=== PATIENT | female | born 2000 | race African-American/Black ===

== ENCOUNTER 2020-04-09 15:49 | Emergency (ER) | payer OTHER ==
[2020-04-09 16:00] VITALS: TEMP 98; BMI 29.2
--- NOTE | 2020-04-09 16:01 | PDOC ---
Rapid Medical Evaluation Chief Complaint: Pain Time Seen by Provider: 04/09/20 15:58 Medical Evaluation: 04/09/20 15:58 I have performed a brief in-person evaluation of this patient. The patient presents with a chief complaint of: R lower abd pain w/ n/v today. Seen in UC today and given zofran. States urine was collected w/ UTI. No change in BM, dysuria, vaginal discharge, f/c Pertinent physical exam findings:stable and in NAD I have ordered the following:ua/cx/labs The patient will proceed to the ED for further evaluation. Discharge Disposition - Diagnosis Abdominal pain Qualifiers: Abdominal location: right lower quadrant Qualified Code(s): R10.31 - Right lower quadrant pain - Referrals - Patient Instructions - Post Discharge Activity
[2020-04-09 19:07] LABS: EOS % 0.1 % (0-4.5); HEMATOCRIT 35.5 % (32.4-45.2); HEMOGLOBIN 11.1 GM/dL (10.7-15.3); LYMPH % 20.7 % (8-40); MCH 26.2 pg (25.7-33.7); MCHC 31.4 g/dl (32.0-36.0); MEAN CELL VOLUME 83.6 fl (80-96); MEAN PLT VOLUME 9.2 fl (7.5-11.1); MONO % 2.7 % (3.8-10.2); NEUT % 75.5 % (42.8-82.8); PLATELET COUNT 226 K/MM3 (134-434); RBC 4.24 M/mm3 (3.60-5.2); WHITE BLOOD COUNT 9.9 K/mm3 (4.0-10.0)
[2020-04-09 19:08] LABS: PH,URINE 5.5 (5.0-8.0); URINE APPEARANCE CLOUDY; URINE BILIRUBIN NEGATIVE (NEGATIVE); URINE COLOR YELLOW; URINE GLUCOSE (UA) NEGATIVE (NEGATIVE); URINE KETONE 1+ (NEGATIVE); URINE LEUK ESTERASE NEGATIVE (NEGATIVE); URINE NITRITE NEGATIVE (NEGATIVE); URINE PROTEIN TRACE (NEGATIVE)
[2020-04-09 19:21] LABS: ALBUMIN 4.1 g/dl (3.4-5.0); BILIRUBIN,TOTAL 0.9 mg/dL (0.2-1); BLOOD UREA NITROGEN 14.1 mg/dL (7-18); CALCIUM 9.5 mg/dL (8.5-10.1); CREATININE 0.9 mg/dL (0.55-1.3); POTASSIUM 4.5 mmol/L (3.5-5.1); TOT PROT 8.2 g/dl (6.4-8.2)
--- NOTE | 2020-04-09 20:58 | PDOC ---
History of Present Illness - General Chief Complaint: Pain Stated Complaint: SENT BY PCP/ABD PAIN Time Seen by Provider: 04/09/20 15:58 - History of Present Illness Initial Comments: 04/09/20 20:56 19-year-old female without comorbidities presents for evaluation of right-sided abdominal pain x1 day Past History - Medical History Allergies/Adverse Reactions: Allergies Allergy/AdvReac Type Severity Reaction Status Date / Time No Known Allergies Allergy Verified 04/09/20 16:00 COPD: No - Reproductive History Is Patient Now?: No - Psycho-Social/Smoking History Smoking History: Never smoked - Substance Abuse Hx (Audit-C & DAST Scrn) How often the patient has a drink containing alcohol: Never Score: In Men: 4 or > Positive; In Women: 3 or > Positive: 0 Screen Result (Pos requires Nsg. Audit-10AR): Negative Review of Systems - Review of Systems Constitutional: No: Fever ABD/GI: Yes: See HPI. No: Constipated, Diarrhea, Nausea, Vomiting *Physical Exam - Vital Signs Last Vital Signs Temp Pulse Resp BP Pulse Ox 98 F 71 18 118/56 L 100 04/09/20 15:57 04/09/20 15:57 04/09/20 15:57 04/09/20 15:57 04/09/20 15:57 - Physical Exam 04/09/20 20:57 GENERAL: The patient is awake, alert, and fully oriented, in no acute distress. HEAD: Normal with no signs of trauma. EYES: sclera anicteric, conjunctiva clear. ENT: Ears normal tympanic membranes normal oropharynx clear uvula midline NECK: Normal range of motion LUNGS: Breath sounds equal, clear to auscultation bilaterally. No wheezes, and no crackles. HEART: S1 and S2 without murmur, rub or gallop. ABDOMEN: Soft, Right lower quadrant tenderness with guarding and reboundr, normoactive bowel sounds. No guarding, no rebound. No masses. EXTREMITIES: Normal range of motion, no edema. No clubbing or cyanosis. No cords, erythema, or tenderness. NEUROLOGICAL: Cranial nerves II through XII grossly intact. PSYCH: Normal mood, normal affect. SKIN: Warm, Dry, normal turgor, no rashes or lesions noted. ED Treatment Course - LABORATORY CBC & Chemistry Diagram: 04/09/20 18:50 04/09/20 18:50 - ADDITIONAL ORDERS Additional order review: Laboratory Results 04/09/20 04/09/20 04/09/20 18:50 18:50 18:01 Sodium 138 Potassium 4.5 Chloride 106 Carbon Dioxide 23 Anion Gap 9 BUN 14.1 Creatinine 0.9 Est GFR (CKD-EPI)AfAm 106.68 Est GFR (CKD-EPI)NonAf 92.04 Random Glucose 92 Calcium 9.5 Total Bilirubin 0.9 AST 25 ALT 17 Alkaline Phosphatase 59 Total Protein 8.2 Albumin 4.1 Lipase 138 Serum , Qual Negative Urine Color Yellow Urine Appearance Cloudy Urine pH 5.5 Ur Specific [place] 1.029 Urine Protein Trace Urine Glucose (UA) Negative Urine Ketones 1+ H Urine Blood Negative Urine Nitrite Negative Urine Bilirubin Negative Urine Urobilinogen 1.0 Ur Leukocyte Esterase Negative 04/09/20 18:50 RBC 4.24 MCV 83.6 MCHC 31.4 L RDW 15.0 MPV 9.2 Neutrophils % 75.5 Lymphocytes % 20.7 Monocytes % 2.7 L Eosinophils % 0.1 Basophils % 1.0 - RADIOLOGY Radiology Studies Ordered: Category Date Time Status ABDOMEN & PELVIS CT WITH CONTR [CT] Stat CT Scan 04/09/20 19:12 Completed Medical Decision Making - Medical Decision Making 04/09/20 20:57 Most likely exacerbation of ovarian cyst. We will have patient follow-up with [facility]. I have reviewed the pathophysiology with the patient. They are in agreement with the treatment plan all questions were answered to their satisfaction. Understanding for follow-up without fail was also conveyed to the patient. Again they are in agreement. Discharge - Discharge Information Problems reviewed: Yes Clinical Impression/Diagnosis: Ovarian cyst Abdominal pain Qualifiers: Abdominal location: right lower quadrant Qualified Code(s): R10.31 - Right lower quadrant pain Condition: Stable Disposition: HOME - Admission No - Follow up/Referral Referrals: Dae Clay MD [Primary Care Provider] - Lindsay Connors MD [Staff Physician] - - Patient Discharge Instructions Additional Instructions: Tylenol and Motrin as directed for pain and without fail follow-up with [facility] in 1 to 2 days for further evaluation and treatment of your ovarian cyst. Return to the emergency room should symptoms worsen. - Post Discharge Activity
--- NOTE | 2020-04-09 21:08 | PDOC ---
*Physical Exam - Vital Signs Last Vital Signs Temp Pulse Resp BP Pulse Ox 98 F 71 18 118/56 L 100 04/09/20 15:57 04/09/20 15:57 04/09/20 15:57 04/09/20 15:57 04/09/20 15:57 ED Treatment Course - LABORATORY CBC & Chemistry Diagram: 04/09/20 18:50 04/09/20 18:50 - ADDITIONAL ORDERS Additional order review: Laboratory Results 04/09/20 04/09/20 04/09/20 18:50 18:50 18:01 Sodium 138 Potassium 4.5 Chloride 106 Carbon Dioxide 23 Anion Gap 9 BUN 14.1 Creatinine 0.9 Est GFR (CKD-EPI)AfAm 106.68 Est GFR (CKD-EPI)NonAf 92.04 Random Glucose 92 Calcium 9.5 Total Bilirubin 0.9 AST 25 ALT 17 Alkaline Phosphatase 59 Total Protein 8.2 Albumin 4.1 Lipase 138 Serum , Qual Negative Urine Color Yellow Urine Appearance Cloudy Urine pH 5.5 Ur Specific [place] 1.029 Urine Protein Trace Urine Glucose (UA) Negative Urine Ketones 1+ H Urine Blood Negative Urine Nitrite Negative Urine Bilirubin Negative Urine Urobilinogen 1.0 Ur Leukocyte Esterase Negative 04/09/20 18:50 RBC 4.24 MCV 83.6 MCHC 31.4 L RDW 15.0 MPV 9.2 Neutrophils % 75.5 Lymphocytes % 20.7 Monocytes % 2.7 L Eosinophils % 0.1 Basophils % 1.0 Medical Decision Making - Medical Decision Making 04/09/20 21:08 Patient seen by the advanced practice provider under my supervision. Ancillary testing reviewed as necessary. I agree with plan as outlined by the advanced practice provider. Discharge - Discharge Information Problems reviewed: Yes Clinical Impression/Diagnosis: Ovarian cyst Abdominal pain Qualifiers: Abdominal location: right lower quadrant Qualified Code(s): R10.31 - Right lower quadrant pain Condition: Stable Disposition: HOME - Follow up/Referral Referrals: Lindsay Connors MD [Staff Physician] - Dae Clay MD [Primary Care Provider] - - Patient Discharge Instructions Additional Instructions: Tylenol and Motrin as directed for pain and without fail follow-up with [facility] in 1 to 2 days for further evaluation and treatment of your ovarian cyst. Return to the emergency room should symptoms worsen. - Post Discharge Activity
[2020-04-09 22:42] VITALS: BP 120/70; PULSE 70
== END 2020-04-09 22:42 | disposition home or self-care (01) ==
LOC: JER 15:49
DX: R10.31 Right lower quadrant pain (principal)
CPT/HCPCS: 36415; 74177-TC; 76830-TC; 80053; 81003; 83690; 84703; 85025; 99285-25; Q9967

== ENCOUNTER 2020-04-10 11:42 | Emergency (ER) | payer OTHER ==
--- NOTE | 2020-04-10 11:51 | PDOC ---
Rapid Medical Evaluation Time Seen by Provider: 04/10/20 11:48 Medical Evaluation: Allergies Allergy/AdvReac Type Severity Reaction Status Date / Time No Known Allergies Allergy Verified 04/09/20 16:00 04/10/20 11:49 I performed a brief in-person evaluation of this patient. Pt is a 19 y/o female who presents with pain on her R side that she was seen for yesterday. She had a CT yesterday and an US and was told she has a R ovarian cyst. The patient states Tylenol has not helped so she returned to the ED. She admits that she has an appointment with supervisor [employer] on Tuesday04/14/20. She denies any fevers or chills. Pertinent physical exam findings: R sided abd tenderness to palpation I have ordered the following: deferred to treating provider's discretion Patient to proceed to ED for further evaluation. Discharge Disposition - Diagnosis Right sided abdominal pain - Referrals - Patient Instructions - Post Discharge Activity
[2020-04-10 11:53] VITALS: BP 115/58; PULSE 79; TEMP 98.9; BMI 25.7
[2020-04-10] MEDS ORDERED: KETOROLAC TROMETHAMINE 30 MG/1 ML VIAL IM ONE (12:12)
--- NOTE | 2020-04-10 12:26 | PDOC ---
History of Present Illness - General Chief Complaint: Pain Stated Complaint: ABD PAIN Time Seen by Provider: 04/10/20 11:48 History Source: Patient Exam Limitations: No Limitations - History of Present Illness Initial Comments: 04/10/20 13:01 19-year-old female no significant past medical history presents the ED with right lower quadrant pain. Patient was seen here yesterday and found to have large hemorrhagic ovarian cyst on the right side as well as ovarian cyst on the left. Patient hCG was negative H&H was stable as of yesterday. Patient states that the pain has worsened and she had nausea with NBNB vomiting. Patient has been taking Tylenol for the pain but has not had relief. Patient states she has no new vaginal bleeding or discharge. Pt otherwise denies: fevers, chills, syncope, lightheadedness, dizziness, headaches, neck pain, chest pain, shortness of breath, palpitations, back pain, diarrhea, constipation, melena, hematochezia, dysuria, hematuria, increased urinary frequency/urgency, vaginal bleeding, vaginal discharge. 04/10/20 13:03 Past History - Medical History Allergies/Adverse Reactions: Allergies Allergy/AdvReac Type Severity Reaction Status Date / Time No Known Allergies Allergy Verified 04/10/20 11:53 Home Medications: Ambulatory Orders Ibuprofen [Ibu] 600 mg PO TID #20 tablet 04/10/20 COPD: No - Psycho-Social/Smoking History Smoking History: Never smoked Have you smoked in the past 12 months: No Information on smoking cessation initiated: No - Substance Abuse Hx (Audit-C & DAST Scrn) How often the patient has a drink containing alcohol: Never Score: In Men: 4 or > Positive; In Women: 3 or > Positive: 0 Screen Result (Pos requires Nsg. Audit-10AR): Negative Review of Systems - Review of Systems Constitutional: No: Chills, Fever HEENTM: No: Blurred Vision Respiratory: No: Shortness of Breath Cardiac (ROS): No: Chest Pain ABD/GI: Yes: Symptoms Reported (abdominal pain), Nausea, Vomiting. No: Abdominal Distended : Yes: Pain. No: Burning, Dysuria, Discharge, Hematuria, Urgency Musculoskeletal: No: Back Pain, Joint Pain Neurological: No: Headache *Physical Exam - Vital Signs Last Vital Signs Temp Pulse Resp BP Pulse Ox 98.9 F 79 16 115/58 L 100 04/10/20 11:51 04/10/20 11:51 04/10/20 11:51 04/10/20 11:51 04/10/20 11:51 - Physical Exam 04/10/20 13:03 Gen: AAOx 3, no acute distress, comfortable, no signs of respiratory distress HENT: atraumatic, normocephalic with no laceration or contusion. Nasal mucosa without erythema. Oropharynx without erythema or exudates. Mucous membranes moist. EYES: PERRL, EOM intact, conjunctiva pink NECK: supple; trachea midline; no JVD, no lymphadenopathy, or thyromegaly CV: RRR no murmurs, gallops, or rubs. CHEST: CTA b/l no wheezing, rales or rhonchi ABD: +BS/ND. TTP in RLQ without rebound or guarding; rest of abdomen nonttp soft, no rebound, no guarding EXTREMITY: no cyanosis or erythema. 2+ dorsalis pedis, posterior tibial, and radial pulse. No pedal edema; no calf swelling or tenderness SKIN: no rash, warm and dry, no diaphoresis HEME: no purpura or ecchymosis NEURO: normal speech, CN II-XII intact, sensation intact, normal gait, no cerebellar deficits MS: 5/5 strength in all extremities, FROM intact in all extremities. ED Treatment Course - LABORATORY CBC & Chemistry Diagram: 04/10/20 12:55 04/10/20 12:55 Medical Decision Making - Medical Decision Making 04/10/20 13:04 19-year-old female no significant past medical history presenting with right lower quadrant pain found to have large hemorrhagic cyst on CT as well as transvaginal ultrasound yesterday presenting with new onset of worsening pain nausea and vomiting. Vital signs stable patient appears well in the ED is no longer nauseous Appendicitis ruled out on CT yesterday However since patient has had worsening pain with nausea and vomiting will rule out intermittent torsion with repeat transvaginal ultrasound as well as obtain CBC CMP and lactate will reassess based on results Labs WNL stable from yesterday, Lactate 1.0. US shows: Large complex cyst in the right ovary measuring 5.4 x 4.3 cm representing hemorrhagic cyst there is minimal free fluid in the right adnexa and in the cul-de-sac normal vascular flow in both ovaries without evidence of torsion Spoke with Dr Connors from OBGYN reviewed US findings and pt symptoms with her, recommends pain management and follow up on Tuesday. She does not believe pt has intermittent torsion at this time and does not recommend any acute intervention at this time. Pt reports improvement of pain with meds. Pt is safe and stable for discharge with close follow up with OBGYN, which she has an appointment for Tuesday. Strict return precautions given. Supportive care instructions explained and given to pt. Reasons to return ayla gently to ER explained and given. Importance of follow up with PMD and other specialists as indicated stressed to pt. Pt verbalized understanding of instructions. Pt to follow up with PMD in 2 days. 04/10/20 15:15 04/10/20 16:43 Discharge - Discharge Information Problems reviewed: Yes Clinical Impression/Diagnosis: Right sided abdominal pain Condition: Stable Disposition: HOME - Admission No - Additional Discharge Information Prescriptions: Ibuprofen [Ibu] 600 mg PO TID #20 tablet - Follow up/Referral Referrals: Dae Clay MD [Primary Care Provider] - - Patient Discharge Instructions Patient Printed Discharge Instructions: DI for Ovarian Cyst - Post Discharge Activity Work/Back to School Note: Back to Work
[2020-04-10] MEDS ORDERED: KETOROLAC TROMETHAMINE 30 MG/1 ML VIAL ONE (12:28)
[2020-04-10 13:45] LABS: BASO % 0.7 % (0-2.0); EOS % 0.3 % (0-4.5); HEMATOCRIT 34.1 % (32.4-45.2); HEMOGLOBIN 10.8 GM/dL (10.7-15.3); LYMPH % 24.7 % (8-40); MCH 26.3 pg (25.7-33.7); MCHC 31.5 g/dl (32.0-36.0); MEAN CELL VOLUME 83.4 fl (80-96); MEAN PLT VOLUME 9.4 fl (7.5-11.1); MONO % 3.9 % (3.8-10.2); NEUT % 70.4 % (42.8-82.8); PLATELET COUNT 224 K/MM3 (134-434); RBC 4.09 M/mm3 (3.60-5.2); RDW 15.1 % (11.6-15.6); WHITE BLOOD COUNT 7.1 K/mm3 (4.0-10.0)
[2020-04-10 14:22] LABS: ALBUMIN 3.6 g/dl (3.4-5.0); BILIRUBIN,TOTAL 0.9 mg/dL (0.2-1); BLOOD UREA NITROGEN 11.5 mg/dL (7-18); CALCIUM 8.8 mg/dL (8.5-10.1); CREATININE 0.9 mg/dL (0.55-1.3); TOT PROT 7.4 g/dl (6.4-8.2)
== END 2020-04-10 16:54 | disposition home or self-care (01) ==
LOC: JER 11:42
PROC: 3E023GC Introduction of Other Therapeutic Substance into Muscle, Percutaneous Approach (ICD-10-PCS; principal; 2020-04-10)
DX: R10.31 Right lower quadrant pain (principal)
CPT/HCPCS: 36415; 76830-TC; 80053; 83605; 85025; 99284-25

== ENCOUNTER 2022-08-01 19:29 | Emergency (ER) | payer OTHER ==
[2022-08-01 19:39] VITALS: BP 124/76; PULSE 86; RESP 18; TEMP 98.6; BMI 28.3
[2022-08-01] MEDS ORDERED: KETOROLAC TROMETHAMINE 30 MG/1 ML VIAL IVPUSH ONE (20:50)
[2022-08-01] MEDS ORDERED: FAMOTIDINE 20 MG/50 ML IVPB 20 MG/50 ML MG IVPB ONE ×2 (20:50→21:06)
[2022-08-01 21:06] LABS: HEMATOCRIT 33.4 % (32.4-45.2); HEMOGLOBIN 10.8 GM/dL (10.7-15.3); MCH 26.7 pg (25.7-33.7); MCHC 32.5 g/dl (32.0-36.0); MEAN CELL VOLUME 82.4 fl (80-96); MEAN PLT VOLUME 8.6 fl (7.5-11.1); PLATELET COUNT 279 10^3/uL (134-434); RBC 4.06 M/mm3 (3.60-5.2); WHITE BLOOD COUNT 7.4 K/mm3 (4.0-10.0)
[2022-08-01] MEDS ORDERED: KETOROLAC TROMETHAMINE 30 MG/1 ML VIAL ONE (21:06)
[2022-08-01 21:17] LABS: CHLORIDE 107 mmol/L (98-107); SODIUM 137 mmol/L (136-145)
[2022-08-01 21:19] LABS: ALBUMIN 3.4 g/dl (3.4-5.0); CALCIUM 8.8 mg/dL (8.5-10.1)
[2022-08-01 21:20] LABS: ANION GAP 6 MMOL/L (8-16); CO2 24 mmol/L (21-32); GLUCOSE,RANDOM 86 mg/dL (74-106); LIPASE 220 U/L (73-393)
[2022-08-01 21:22] LABS: CREATININE 0.9 mg/dL (0.55-1.3); SGOT/AST 46 U/L (15-37)
[2022-08-01 21:23] LABS: SGPT/ALT 19 U/L (13-61)
[2022-08-01 21:24] LABS: BILIRUBIN,TOTAL 0.4 mg/dL (0.2-1); TOT PROT 7.6 g/dl (6.4-8.2)
[2022-08-01 21:25] LABS: ALK PHOS 60 U/L (45-117)
== END 2022-08-01 23:26 | disposition home or self-care (01) ==
LOC: JERFT 19:29
PROC: 3E033NZ Introduction of Analgesics, Hypnotics, Sedatives into Peripheral Vein, Percutaneous Approach (ICD-10-PCS; principal; 2022-08-01)
PROC: 3E0333Z Introduction of Anti-inflammatory into Peripheral Vein, Percutaneous Approach (ICD-10-PCS; 2022-08-01)
DX: R10.13 Epigastric pain (principal)
CPT/HCPCS: 36415; 76705-TC; 80053; 83690; 84484; 84703; 85027; 93005; 93010; 96365; 96375; 99284-25